=== PATIENT | male | born 1945 | race Caucasian/White ===

== ENCOUNTER 2016-04-10 07:30 | Inpatient (IN) | payer OTHER ==
--- NOTE | 2016-04-08 09:33 | GHP ---
[f rep st] PREOP HISTORY AND PHYSICAL He will be an a.m. admission for surgery at [facility] on Sunday, April 10, 2016. PROBLEM: Right hip arthritis. HISTORY OF PRESENT ILLNESS: The patient is a 71-year-old man admitted for a right total hip arthroplasty. He has had progressive pain in the right hip over the last couple of years. He also has mild pain in his left hip. He complains of intermittent low back pain. He uses ibuprofen occasionally. Many years ago, he had an open right proximal tibia fracture, and he states that his right leg is 5/8 of an inch shorter than the left. The tibia fracture occurred in [place] [employer] in 1968. He has been wearing a lift in the right shoe. He has had 2 previous episodes of DVT in the left lower extremity. He is on Eliquis and aspirin. He has some chronic swelling in the right lower extremity and stasis dermatitis changes in the right leg. PAST MEDICAL HISTORY: He is treated for hypothyroidism and hypertension. He also has stomach acid problems. He has had 2 previous episodes of DVT in his left lower extremity. No history of serious previous MRSA staph infections. No history of heart disease or stents, hepatitis or sleep apnea. CURRENT MEDICATIONS: Levothyroxine 50 mcg per day, Nexium, lisinopril/ hydrochlorothiazide 10/12.5 daily, Eliquis 5 mg per day. He takes a multivitamin and multiple supplements. One baby aspirin per day. ALLERGIES: Drug allergies: None: Metal allergies: None. Latex allergy: None. SOCIAL HISTORY: The patient is single. 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 He does not smoke cigarettes and occasionally drinks alcohol. When he leaves the hospital. He is going to stay with [employer] for several days. He has a friend who is coming after that and is going to stay with him for several weeks while he recovers. FAMILY HISTORY: Positive for arthritis and diabetes. PHYSICAL EXAMINATION: GENERAL: He is a healthy-appearing man. VITAL SIGNS: Height 6 feet, weight 180 pounds, BMI 24.4. EYES: Conjunctivae and sclerae are clear. Pupils are round and reactive. MOUTH: Good oral hygiene. No loose teeth. CHEST: Clear. HEART: Regular rhythm. No murmurs. EXTREMITIES : Pertinent findings are limited to his right hip. He has full hip extension and 100 degrees of flexion. External rotation 20 degrees. Internal rotation 0 degrees. Abduction 30 degrees. Attempts at internal rotation are painful. IMAGING: His films show advanced degenerative arthritis of the right hip. He is bone on bone. He has mild cartilage space narrowing in his left hip. Good quality bone. IMPRESSION ON ADMISSION: 1. Right hip advanced degenerative arthritis. He is prepared for a right total hip arthroplasty. 2. Left hip mild to moderate degenerative arthritis which is mildly symptomatic. 3. Status post successful left total knee arthroplasty in 2006. 4. Treatment for hypothyroidism. 5. Treatment for hypertension. 6. Treatment for stomach acid problems. 7. Treatment for several previous episodes of DVT. He will undergo a right total hip arthroplasty. The surgery has been described to him, including the risks, complications, expectations, and recovery time. I will intentionally lengthen him up to 1/2 inch. I am not going to use tranexamic acid because of his history of DVT. I will start him back on his Eliquis postoperatively. I have discussed with him the risk of dislocation, leg length inequality, infection, and sciatic nerve injury. He understands there is a small risk that he might require future revision surgery. All of his questions have been answered, and he consents to surgery. /[id number]/MODL MTDD
[2016-04-08 10:02] LABS: % IMMATURE GRANULYOCYTES 0.2 % (0.0-1.1); ABSOLUTE IMMATURE GRANULOCYTES 0.01 10^3/uL (0.00-0.10); ADD DIFF? NO; ADD MORPH? NO; ADD SCAN? NO; ATYPICAL LYMPHOCYTE FLAG 10 (0-99); FRAGMENT RBC FLAG 0 (0-99); HEMATOCRIT 44.6 % (40.0-51.0); HEMOGLOBIN 15.3 g/dL (13.7-17.5); LEFT SHIFT FLG 0 (0-99); LIPEMIA HEMOLYSIS FLAG 90 (0-99); MEAN CELL HEMOGLOBIN 34.2 pg (27.9-34.1); MEAN CELL HEMOGLOBIN CONCENTR. 34.3 g/dL (32.4-36.7); MEAN CELL VOLUME 99.6 fL (81.5-99.8); MEAN PLATELET VOLUME 10.3 fL (8.7-11.7); PLATELET CLUMPS FLAG 10 (0-99); PLATELET COUNT 196 10^3/uL (150-400); RED BLOOD CELL COUNT 4.48 10^6/uL (4.40-6.38); RED CELL DISTRIBUTION WIDTH 12.7 % (11.5-15.2)
[2016-04-08 10:25] LABS: ANION GAP 11 mEq/L (8-16); CALCIUM 9.9 mg/dL (8.5-10.4); CARBON DIOXIDE 28 mEq/l (22-31); CHLORIDE 101 mEq/L (97-110); GLOMERULAR FILTRATION RATE > 60; GLUCOSE 102 mg/dL (70-100); POTASSIUM 4.5 mEq/L (3.5-5.2); SODIUM 140 mEq/L (134-144)
[2016-04-10] MEDS ORDERED: LIDOCAINE 1% 5 ML SDV ONE (07:42)
[2016-04-10] MEDS ORDERED: SKIN ADHESIVE (DERMABOND) 1 EACH TP ONE (07:54)
[2016-04-10] MEDS ORDERED: ceFAZolin 1 GM/5 ML SYR ONE (07:54)
[2016-04-10] MEDS ORDERED: LR 1,000 ML IV ONE (08:36)
[2016-04-10] MEDS ORDERED: LIDOCAINE 1% 5 ML SDV ID PRN (08:36)
[2016-04-10] MEDS ORDERED: ACETAMINOPHEN 325 MG TAB PO ONE (09:00)
[2016-04-10] MEDS ORDERED: CHLORHEXIDINE GLUC HIBICLENS 118 ML BTL TP ONE (09:00)
[2016-04-10] MEDS ORDERED: TRANEXAMIC ACID 1,640 MG in NS 100 ML IV ONE (09:00)
[2016-04-10] MEDS ORDERED: CEFAZOLIN 2 GM/DEXTR 100 ML IV ONE (09:00)
[2016-04-10] MEDS ORDERED: POVIDONE-IODINE 20 ML in SODIUM CL IRRIG SOLUTION 500 ML IRR ONE (09:00)
[2016-04-10] MEDS ORDERED: ROPI/epiNEPH/KETOROLAC JOINT COCKTAIL IU ONE (09:00)
[2016-04-10] MEDS ORDERED: FAMOTIDINE 20 MG TAB PO ONE (09:00)
[2016-04-10] MEDS ORDERED: DEXAMETHASONE 4 MG/ML VIAL IVP ONE (09:00)
[2016-04-10] MEDS ORDERED: MIDAZOLAM 2 MG/2 ML VIAL ONE ×2 (09:43→09:47)
[2016-04-10] MEDS ORDERED: fentaNYL 100 MCG/2 ML INJ ONE (09:47)
[2016-04-10] MEDS ORDERED: PROPOFOL/EMULSION 500 MG/50 ML BOTTLE IV ONE (09:47)
[2016-04-10] MEDS ORDERED: DEXAMETHASONE 4 MG/ML VIAL ONE (10:47)
[2016-04-10] MEDS ORDERED: epHEDrine SULFATE 10 MG/ML SYR ONE ×2 (10:47)
[2016-04-10] MEDS ORDERED: PHENYLEPHRINE HCL 100 MCG/ML SYR ONE (10:47)
--- NOTE | 2016-04-10 11:21 | POSTOPPROG ---
Post Op Note Date of Operation: 04/10/16 Surgeon: Tani Kohler Business Technology Analyst: Antoinette Anesthesiologist: Zay Anesthesia: IV Sedation, Spinal Post-op Diagnosis: right hip arthritis Procedure: right DESHAWN Inf/Abcess present in the surg proc area at time of surgery?: No EBL: 100-500
[2016-04-10] MEDS ORDERED: PROMETHAZINE HCL 25 MG SUPPR PR PRN (11:29)
[2016-04-10] MEDS ORDERED: ONDANSETRON 4 MG/2 ML VIAL IVP PRN (11:29)
[2016-04-10] MEDS ORDERED: NS 500 ML IV PRN (11:29)
[2016-04-10] MEDS ORDERED: DIPHENOXYLATE/ATROPINE LOMOTIL 1 TAB PO PRN (11:29)
[2016-04-10] MEDS ORDERED: traMADol 50 MG TAB PO PRN (11:29)
[2016-04-10] MEDS ORDERED: POLYETHYLENE GLYCOL 3350 17 GM PKT PO PRN (11:29)
[2016-04-10] MEDS ORDERED: MAGNESIUM HYDROXIDE 30 ML UDCUP PO PRN (11:29)
[2016-04-10] MEDS ORDERED: METOCLOPRAMIDE 10 MG/2 ML VIAL IVP PRN (11:29)
[2016-04-10] MEDS ORDERED: BISACODYL 10 MG SUPP PR PRN (11:29)
[2016-04-10] MEDS ORDERED: PHARMACY PAIN CONSULT 1 EA MISC PRN (11:29)
[2016-04-10] MEDS ORDERED: diphenhydrAMINE 25 MG CAP PO PRN (11:29)
[2016-04-10] MEDS ORDERED: LACTULOSE 20 GM/30 ML UDCUP PO PRN (11:29)
[2016-04-10] MEDS ORDERED: TEMAZEPAM 15 MG CAP PO PRN (11:29)
[2016-04-10] MEDS ORDERED: KETOROLAC 30 MG/1 ML SDV IVP PRN (11:29)
[2016-04-10] MEDS ORDERED: ONDANSETRON DISINTEGRATING 4 MG TAB PO PRN (11:29)
[2016-04-10] MEDS ORDERED: PROMETHAZINE HCL 25 MG/ML VIAL IVP PRN (11:29)
[2016-04-10] MEDS ORDERED: LR 1,000 ML IV SCH (11:30)
--- NOTE | 2016-04-10 12:12 | DX ---
Portable AP Pelvis, 11:53 AM Clinical History: 71-year-old male the PACU after a right hip arthroplasty COMPARISON STUDY: Lower extremity bone length study, retrieved from archive status, dated August 11. FINDINGS: The patient has undergone a right hip arthroplasty, with anatomic alignment of the femoral and acetabular components. There is normally-expected postoperative air in the soft tissues. The intr amedullary ghada is well-centered. The ischial pubic rami are intact. The left hip is anatomically alig bushra. IMPRESSION: Status post right hip arthroplasty, with anatomic alignment.
--- NOTE | 2016-04-10 12:17 | GOP ---
[f rep st] OPERATIVE REPORT DATE OF OPERATION: 04/10/2016 SURGEON: Tani Kohler MD MANAGER METAL: Duane Young and Leonardo Beckham. ANESTHESIA: A combination of Marcaine spinal and IV sedation. ANESTHESIOLOGIST: Dr. Wendy Collazo. PREOPERATIVE DIAGNOSIS: Right hip severe degenerative arthritis. POSTOPERATIVE DIAGNOSIS: Right hip severe degenerative arthritis. PROCEDURE PERFORMED: Right total hip arthroplasty, Oxinium femoral head on highly cross-linked polye thylene cup liner. FINDINGS: DESCRIPTION OF PROCEDURE: The patient was given 2 g of preoperative IV Ancef. I did not give him tr anexamic acid because of his previous history of 2 episodes of DVT. He was placed on the operating r oom table and given spinal anesthesia with Marcaine by Dr. Collazo. He was then placed supine and gi jonathan IV sedation. A Van catheter was not used. He wore a BHAVIK stocking and SCD on the nonoperative leg. He was rolled to the left lateral decubitus position. The position was secured with the [employer]a rd table attachment. An axillary roll was used, and all pressure points were carefully padded. I wa s careful to lock his pelvis in a vertical position. His perineum was isolated with plastic adhesive drapes. His right hip and right lower extremity were prepped with ChloraPrep. They were draped elvia e using sterile sheets, stockinette, and Ioban plastic adhesive drapes. The [employer] time-out was performed to verify the correct patient identity and the c orrect surgical side. The [place] time-out was also performed. I made a 5-6 inch straight oblique posterolateral hip skin incision. The subcutaneous tissues were s harply divided, and hemostasis was obtained using electrocautery. The fascia cristino was identified and split along the axis of its fibers. I curved posteriorly and proximally split the fascia of the glu teus shelley and bluntly split the muscle fibers in line with their orientation. The [place] self-r etaining retractor was inserted. His sciatic nerve was located, partially exposed and protected thro ughout the procedure. The external rotators and the posterior hip capsule were divided as separate l sharp at the base of the femoral neck, tagged and reflected posteriorly. A smooth 8-inch Steinmann p in was inserted vertically into the ilium superior to the acetabulum. An 8-inch drill bit was insert ed vertically into the greater trochanter and parallel to the 1st pin. The distance between the 2 wa s measured for leg length reference. His femoral head was dislocated posteriorly. Severe degenerati ve changes were present on the femoral head. The femoral neck was osteotomized at the appropriate le zamzam and inclination. I was careful to preserve all the posterior capsule and most of the anterior capsule. The remnant of his damaged labrum was excised. I prepared the femur first. This allowed me to elevator dispatcher the amount of natural femoral neck anteversion. This, in turn, allowed me to later determine the correct amount of cup anteversion. He had approxi mately 10 degrees of natural femoral neck anteversion. The canal was opened laterally with a box chi mario. I reamed and broached sequentially up to a size 15. I used a size 15 broach as a trial stem. I was careful to lateralize adequately. Appropriate retractors were inserted to expose the acetabulum. The acetabulum was reamed sequentiall y up to 57 mm. He had a large medial acetabular osteophyte. I was careful to deepen him to the true floor of the acetabulum. I selected a 58 mm and Nephew R3 solid-backed hemispherical shell. This was tapped securely into place in the proper degree of inclination and anteversion. I used the remnant of his transverse acetabular ligament and other acetabular bony landmarks to help me properly orient the cup. Supplemental screw fixation was not necessary. I inserted a screw-in metal dome ho le plug. I performed a series of trial reductions to determine length and stability. I concluded that the siz e 15 stem with a +8 mm neck length, a 36 mm head and a flush liner gave me the proper combination of appropriate length and good anterior and posterior stability. The patient is approximately 5/8 of an inch short on the right lower extremity preoperatively secondary to a severe tibia fracture many yea rs ago. He asked me to lengthen him. The flush and Nephew R3 highly cross-linked polyethylene liner was inserted and tapped securely into place. I chose a and Nephew Synergy stem and a size 15 with standard offset. This was i nserted press-fit and was very tight. I did 1 final trial reduction and confirmed that the +8 mm nec k length with a 36 mm head was the proper combination. I selected a and Nephew Oxinium head wi th an outside diameter of 36 mm and a neck length of +8 mm. This was tapped securely onto the clean trunnion. The acetabulum was irrigated, cleaned, and the hip was reduced 1 final time. He had excel lent anterior and posterior stability and appropriate lengthening. 40 mL of a joint anesthetic cocktail was injected into the capsule, the deep musculature and the subc utaneous tissues around the skin edges. The joint was thoroughly irrigated 1 final time with a dilut e Betadine solution. His sciatic nerve was reinspected and looked unharmed. The external rotators a nd the posterior hip capsule were repaired in separate layers with #2 FiberWire sutures through drill holes in the greater trochanter. This provided a strong posterior capsular and external rotator rep air. His fascia cristino was repaired 1st with 2 interrupted [id number] #2 FiberWire sutures, follo wed by a running #2 barbed Ethicon Stratafix PDO suture. The subcutaneous tissues were closed with a running 0 barbed Ethicon Stratafix Monoderm suture. The skin was closed with a running 3-0 barbed E thicon Stratafix Monoderm subcuticular suture. The skin edges were reapproximated and sealed with De rmabond glue. The wound was covered with a strip of Telfa, and everything was held in place with a p iece of clear plastic Tegaderm. A long-leg BHAVIK stocking and SCD were applied to his right lower extremity. He wore a stocking and SC D on the opposite leg during the procedure. An abduction pillow was placed between his knees. He wa s awakened from anesthesia and rolled to the supine position on his [facility]. He was taken to PACU in satisfactory condition. There were no recognized intraoperative complications. I used a and Nephew R3 hemispherical solid backed acetabular shell with an outside diameter of 58 mm. The liner was a and Nephew R3 flush highly cross-linked liner with an inside diameter o f 36 mm. The femoral component was a press-fit and Nephew standard offset Synergy stem in a si ze 15. The femoral head was a and Nephew Oxinium head with a +8 mm neck length and a 36 mm out side diameter. Duane Young and Leonardo Beckham acted as surgical assistants. Their assistance was a medical necess ity. /[id number]/MODL
[2016-04-10] MEDS: ACETAMINOPHEN 325 MG TAB PO SCH ×3 (12:55→23:55)
[2016-04-10] MEDS ORDERED: ceFAZolin 2 GM/DEXTROSE 100 ML IV SCH (14:00)
[2016-04-10] MEDS: oxyCODONE IR 5 MG TAB PO PRN ×4 (14:20→23:56)
[2016-04-10] MEDS: ceFAZolin 2 GM/DEXTROSE 100 ML IV SCH (17:39)
[2016-04-10] MEDS ORDERED: ASPIRIN 81 MG CHEWABLE TAB PO SCH (21:00)
[2016-04-10] MEDS: SENNOSIDES/DOCUSATE SODIUM TAB PO SCH (21:22)
[2016-04-10] MEDS: FAMOTIDINE 20 MG TAB PO SCH (21:22)
[2016-04-11] MEDS: CYCLOBENZAPRINE 10 MG TAB PO PRN ×2 (02:29→11:33)
[2016-04-11] MEDS: ceFAZolin 2 GM/DEXTROSE 100 ML IV SCH (02:29)
[2016-04-11 05:33] LABS: HEMOGLOBIN 11.8 g/dL (13.7-17.5)
[2016-04-11] MEDS ORDERED: LEVOTHYROXINE 50 MCG TAB PO SCH (06:00)
[2016-04-11] MEDS: ACETAMINOPHEN 325 MG TAB PO SCH ×2 (06:23→11:33)
--- NOTE | 2016-04-11 07:14 | SOAPPROG ---
SOAP Progress Note Assessment/Plan: Assessment: Afebrile. Moderate pain. Needed cath x1 last night. Voiding spont. since then. H/H is good. Sciatic nerve intact. Dsg is dry. Films look good. Plan:PT today. DC later today. 04/11/16 07:13 Objective: Vital Signs Temp Pulse Resp BP Pulse Ox 36.4 C 60 18 117/63 94 04/11/16 02:32 04/11/16 02:32 04/11/16 02:32 04/11/16 02:32 04/11/16 02:32 Laboratory Results 04/11/16 04:15 04/08/16 09:40 04/10/16 04/11/16 04/12/16 05:59 05:59 05:59 Intake Total 4500 Output Total 1777 250 Balance 2735 -250 ICD10 Worksheet Patient Problems: Problems Problem Status Diagnosed Osteoarthritis of right hip Acute
[2016-04-11 07:15] VITALS: PULSE 57; TEMP 98.1
--- NOTE | 2016-04-11 08:40 | GDS ---
[f rep st] DISCHARGE SUMMARY ADMISSION DIAGNOSIS: Right hip degenerative arthritis. DISCHARGE DIAGNOSIS: Right hip degenerative arthritis. NAME OF PROCEDURE: Right total hip arthroplasty. POSTOP COMPLICATIONS: None. CONDITION ON DISCHARGE: Improved. DESCRIPTION OF HOSPITAL COURSE: The patient was admitted to the hospital on the morning of surgery. His admission CBC, electrolytes, BUN and creatinine were all normal. The same day under a combinati on of Marcaine spinal anesthesia and IV sedation, he underwent a right total hip arthroplasty. Posto peratively, he required catheterization 1 time, but was able to void spontaneously after that. He wa s treated with multimodal DVT prophylaxis including aspirin. He was restarted on his preoperative El iquis. On the 1st postoperative day, his hemoglobin and hematocrit were 11.8 and 34.0. He was seen by Physical Therapy and made good progress with ambulation and stairs. By the time of discharge, he was afebrile, his wound was clean and dry, and he was independent in walking. DISPOSITION: The patient is discharged to a friend's home. He will have outpatient physical therapy . He may progress to full weightbearing on the right as tolerated. Use an abduction pillow in bed f or 3 weeks. Use BHAVIK stockings for 1 week. He will resume his normal preoperative dose of Eliquis an d baby aspirin. He can start outpatient physical therapy in a week or 2. I will see him back in the office on May 02, 2016. If there any problems, he is to call me at the office. /[id number]/MODL
[2016-04-11] MEDS ORDERED: FERROUS SULFATE 140 MG TAB.ER PO SCH (09:00)
[2016-04-11] MEDS ORDERED: APIXABAN 5 MG TAB PO SCH (09:00)
[2016-04-11] MEDS ORDERED: ESOMEPRAZOLE MAGNESIUM PO SCH (09:00)
[2016-04-11] MEDS ORDERED: MULTIVITAMINS 1 EACH TAB PO SCH (09:00)
[2016-04-11] MEDS ORDERED: PANTOPRAZOLE SODIUM 40 MG TAB PO SCH (09:00)
[2016-04-11] MEDS ORDERED: Herbals/Supplements -Info Only PO SCH (09:00)
[2016-04-11] MEDS ORDERED: LISINOPRIL/HCTZ 10/12.5 MG 1 EA TAB PO SCH (09:00)
[2016-04-11] MEDS: SENNOSIDES/DOCUSATE SODIUM TAB PO SCH (09:02)
[2016-04-11] MEDS: FAMOTIDINE 20 MG TAB PO SCH (09:02)
[2016-04-11] MEDS: oxyCODONE IR 5 MG TAB PO PRN (11:34)
[2016-04-11 12:06] VITALS: BP 97/57; RESP 16; O2SAT 95
== END 2016-04-11 15:34 | disposition home or self-care (01) | DRG 470 ==
LOC: F3N 07:30
PROVIDERS: ADMIT Orthopaedic Surgery; ATTEND Orthopaedic Surgery
PROC: 0SR902Z Replacement of Right Hip Joint with Metal on Polyethylene Synthetic Substitute, Open Approach (ICD-10-PCS; principal; 2016-04-10 09:15)
DX: M16.0 Bilateral primary osteoarthritis of hip (principal); E03.9 Hypothyroidism, unspecified; I10 Essential (primary) hypertension
CPT/HCPCS: 97110-GP; 97116-GP; 97161-GP; 97165-GO; J0171; J0690; J1100; J1885; J2250; J2370; J2704; J2795; J3010